=== PATIENT | male | born 1960 | race Caucasian/White ===

== ENCOUNTER 2022-11-15 16:13 | Inpatient (IN) | payer OTHER ==
[2022-11-15 16:34] VITALS: BMI 38.7
[2022-11-15] MEDS ORDERED: VANCOMYCIN 1,000 MG in DEXTROSE 5%-WATER - 250 ML IVPB ONE (17:48)
[2022-11-15] MEDS ORDERED: CEFAZOLIN 3 GM in DEXTROSE 5%-WATER - 100 ML IVPB ONE (17:48)
[2022-11-15] MEDS ORDERED: VANCOMYCIN/WATER FOR INJ (PEG) 1,000 MG/200 ML BAG IVPB ONE (19:01)
[2022-11-15 19:38] LABS: BASO % 0.6 % (0-2.0); EOS % 3.7 % (0-4.5); HEMATOCRIT 40.7 % (35.4-49); HEMOGLOBIN 13.7 GM/dL (11.7-16.9); LYMPH % 18.3 % (8-40); MCH 30.2 pg (25.7-33.7); MCHC 33.7 g/dl (32.0-35.9); MEAN CELL VOLUME 89.9 fl (80-96); MEAN PLT VOLUME 8.2 fl (7.5-11.1); MONO % 8.9 % (3.8-10.2); NEUT % 68.5 % (42.8-82.8); PLATELET COUNT 304 10^3/uL (134-434); RBC 4.52 M/mm3 (4.00-5.60); RDW 13.2 % (11.9-15.9)
[2022-11-15 20:46] LABS: ERYTHROCYTE SEDIMENTATION RATE 18 mm/hr (0-20)
[2022-11-15 20:58] LABS: POTASSIUM 4.6 mmol/L (3.5-5.1)
[2022-11-15 21:01] LABS: ALBUMIN 3.9 g/dl (3.4-5.0); BLOOD UREA NITROGEN 16.9 mg/dL (7-18); CALCIUM 9.3 mg/dL (8.5-10.1)
[2022-11-15 21:04] LABS: CREATININE 1.1 mg/dL (0.55-1.3)
[2022-11-15 21:06] LABS: BILIRUBIN,TOTAL 0.3 mg/dL (0.2-1); TOT PROT 7.4 g/dl (6.4-8.2)
[2022-11-16] MEDS ORDERED: DOCUSATE SODIUM 100 MG CAPSULE (FP) PO PRN (00:12)
[2022-11-16] MEDS ORDERED: ACETAMINOPHEN 1000 MG/100 ML BAG IVPB PRN (00:19)
[2022-11-16] MEDS ORDERED: MELATONIN 5 MG TABLETS PO PRN (03:03)
[2022-11-16] MEDS: CEFAZOLIN SODIUM 2 GM in DEXTROSE 5%-WATER 100 ML IVPB SCH ×3 (04:30→19:03)
[2022-11-16] MEDS ORDERED: CEFAZOLIN SODIUM 2 GM VIAL ONE ×2 (04:31→09:11)
[2022-11-16] MEDS: INSULIN SLIDING SCALE (NOVOLOG) 1 VIAL SQ SCH ×4 (08:00→23:11)
[2022-11-16] MEDS ORDERED: CHOLECALCIFEROL (VIT D3) 1,000 UNIT (25 MCG) TABLET ONE (09:08)
[2022-11-16] MEDS ORDERED: ASPIRIN 325 MG ENTERIC COATED TABLET (FP) ONE (09:08)
[2022-11-16] MEDS ORDERED: ATENOLOL 25 MG TABLET (FP) ONE (09:09)
[2022-11-16] MEDS ORDERED: VANCOMYCIN/WATER 1250 MG 1,250 MG/250 ML BAG IVPB ONE (09:09)
[2022-11-16] MEDS: ATENOLOL 25 MG TABLET (FP) PO SCH (09:10)
[2022-11-16] MEDS: ASPIRIN 325 MG ENTERIC COATED TABLET (FP) PO SCH (09:10)
[2022-11-16] MEDS: CHOLECALCIFEROL (VIT D3) 5000 UNITS (125 MCG) CAP PO SCH (09:10)
[2022-11-16] MEDS ORDERED: VANCOMYCIN PREMIX 1.75 GM 1,750 MG/350 ML PIGGYBACK IVPB SCH (10:00)
[2022-11-16] MEDS ORDERED: CLOMIPRAMINE HCL 50 MG PO SCH (10:00)
[2022-11-16] MEDS: VANCOMYCIN PREMIX 1.75 GM 1,750 MG/350 ML PIGGYBACK IVPB SCH ×2 (12:28→12:29)
[2022-11-16] MEDS: VANCOMYCIN PREMIX 1.5 GM 1,500 MG/300 ML BAG IVPB SCH (14:08)
[2022-11-17] MEDS ORDERED: ACETAMINOPHEN 325 MG TABLET (FP) PO PRN (00:12)
[2022-11-17] MEDS: VANCOMYCIN PREMIX 1.5 GM 1,500 MG/300 ML BAG IVPB SCH ×2 (00:50→12:51)
[2022-11-17] MEDS: CEFAZOLIN SODIUM 2 GM in DEXTROSE 5%-WATER 100 ML IVPB SCH ×3 (03:12→18:04)
[2022-11-17] MEDS: INSULIN SLIDING SCALE (NOVOLOG) 1 VIAL SQ SCH ×4 (06:48→22:14)
[2022-11-17 06:51] VITALS: RESP 18
[2022-11-17] MEDS: CHOLECALCIFEROL (VIT D3) 5000 UNITS (125 MCG) CAP PO SCH (09:49)
[2022-11-17] MEDS: ATENOLOL 25 MG TABLET (FP) PO SCH (10:10)
[2022-11-17 10:42] LABS: BASO % 0.8 % (0-2.0); EOS % 4.5 % (0-4.5); HEMATOCRIT 41.3 % (35.4-49); HEMOGLOBIN 13.9 GM/dL (11.7-16.9); MCH 30.4 pg (25.7-33.7); MCHC 33.6 g/dl (32.0-35.9); MEAN CELL VOLUME 90.4 fl (80-96); MEAN PLT VOLUME 8.1 fl (7.5-11.1); MONO % 10.9 % (3.8-10.2); NEUT % 56.8 % (42.8-82.8); PLATELET COUNT 290 10^3/uL (134-434); RBC 4.58 M/mm3 (4.00-5.60); WHITE BLOOD COUNT 6.5 K/mm3 (4.0-10.0)
[2022-11-17 10:48] LABS: PROTHROMBIN TIME (PATIENT) 11.6 SEC (9.7-13.0)
[2022-11-17 10:50] LABS: ACTIVATED PTT 21.8 SECONDS (25.2-36.5)
[2022-11-17] MEDS: ASPIRIN 325 MG ENTERIC COATED TABLET (FP) PO SCH (10:58)
[2022-11-17 11:13] LABS: POTASSIUM 4.9 mmol/L (3.5-5.1)
[2022-11-17 11:32] LABS: CALCIUM 9.3 mg/dL (8.5-10.1)
[2022-11-17 11:33] LABS: ALBUMIN 3.8 g/dl (3.4-5.0); BLOOD UREA NITROGEN 16.7 mg/dL (7-18)
[2022-11-17 11:36] LABS: CREATININE 0.9 mg/dL (0.55-1.3)
[2022-11-17 11:38] LABS: BILIRUBIN,TOTAL 0.5 mg/dL (0.2-1); TOT PROT 7.4 g/dl (6.4-8.2)
[2022-11-17] MEDS: CLOMIPRAMINE HCL 50 MG PO SCH (18:04)
[2022-11-18] MEDS: VANCOMYCIN PREMIX 1.5 GM 1,500 MG/300 ML BAG IVPB SCH ×3 (01:49→14:11)
[2022-11-18] MEDS: CEFAZOLIN SODIUM 2 GM in DEXTROSE 5%-WATER 100 ML IVPB SCH ×3 (04:31→18:14)
[2022-11-18] MEDS: INSULIN SLIDING SCALE (NOVOLOG) 1 VIAL SQ SCH ×4 (06:07→22:07)
[2022-11-18] MEDS: CHOLECALCIFEROL (VIT D3) 5000 UNITS (125 MCG) CAP PO SCH (10:50)
[2022-11-18] MEDS: ASPIRIN 325 MG ENTERIC COATED TABLET (FP) PO SCH (10:50)
[2022-11-18] MEDS: ATENOLOL 25 MG TABLET (FP) PO SCH (10:50)
[2022-11-18] MEDS: CLOMIPRAMINE HCL 50 MG PO SCH (18:15)
[2022-11-19] MEDS: CEFAZOLIN SODIUM 2 GM in DEXTROSE 5%-WATER 100 ML IVPB SCH ×2 (01:04→09:32)
[2022-11-19] MEDS: VANCOMYCIN PREMIX 1.5 GM 1,500 MG/300 ML BAG IVPB SCH ×2 (01:41→13:49)
[2022-11-19] MEDS: INSULIN SLIDING SCALE (NOVOLOG) 1 VIAL SQ SCH ×2 (06:19→12:00)
[2022-11-19 09:29] VITALS: TEMP 98.2
[2022-11-19] MEDS: ATENOLOL 25 MG TABLET (FP) PO SCH (09:32)
[2022-11-19] MEDS: CHOLECALCIFEROL (VIT D3) 5000 UNITS (125 MCG) CAP PO SCH (09:32)
[2022-11-19] MEDS: ASPIRIN 325 MG ENTERIC COATED TABLET (FP) PO SCH (09:32)
[2022-11-19 15:24] VITALS: BP 116/62; PULSE 81
== END 2022-11-19 15:26 | disposition home or self-care (01) | DRG 603 ==
LOC: JER 16:13 → JERBED 22:36 → J5S 11-16 17:17 → OBSVTOIN 11-18 17:17
PROVIDERS: ADMIT Internal Medicine; ATTEND Family Medicine
DX: L03.115 Cellulitis of right lower limb (principal); E11.9 Type 2 diabetes mellitus without complications; R00.0 Tachycardia, unspecified; Z88.0 Allergy status to penicillin; I10 Essential (primary) hypertension
CPT/HCPCS: 36415; 71045-TC-FY; 80053; 82962; 85025; 85610; 85651; 85730; 86140; 87040; 93005; 93010; 93306-TC; 93970-TC; 99285-25; G0378; G0480